=== PATIENT | female | born 1950 | race Caucasian/White ===

== ENCOUNTER 2019-08-19 13:07 | Outpatient (CLI) | payer BC, SELFPAY ==
--- NOTE | 2019-08-19 13:20 | US_ITS ---
WS: [id number] RIGHT DIGITAL MAMMOGRAPHY WITH CAD CLINICAL INFORMATION: RT BREAST ASYMMETRIC TISSUE COMPARISON: TECHNIQUE: 3 views of the right breast were obtained. FINDINGS: The right breast is composed of heterogeneous fibroglandular density tissue, which can limit the dete ction of small underlying mass lesions. Stable slightly spiculated nodular densities upper outer righ t breast. These partially compresses out on the spot compression views today. Ultrasound is pending. ULTRASOUND BREAST RIGHT TECHNIQUE: Ultrasound right breast focused area of concern. CLINICAL INFORMATION: RT BREAST ASYMMETRIC TISSUE COMPARISON: None. FINDINGS: Ultrasound right breast obtained at the 10:00 position. Dense fibrous tissue is visualized. No eviden ce of cystic or solid lesion. No pathologic lesions to target for biopsy. US/US breast RT limited* [id number] IMPRESSION: BI-RADS: 2-Benign FOLLOW UP: 1 Year Follow-up Recommend return to annual screening mammography.
== END 2019-08-19 13:08 | disposition home or self-care (01) ==
LOC: RADSHAW 13:12
PROVIDERS: Family Provider Family Medicine; Visit Provider Family Medicine
DX: N64.89 Other specified disorders of breast (principal)
CPT/HCPCS: 76642; 77065